=== PATIENT | female | born 1985 | race Caucasian/White ===

== ENCOUNTER 2016-06-03 20:32 | Inpatient (IN) | payer OTHER ==
[~2016-06-03] VITALS: Ht 170.2 cm; Wt 91.2 kg
[~2016-06-03 20:32] MED LIST: ASPIRIN81 M2 PO; LO-DOSE ASPIRIN81 M1 PO; LOVENOX100 MG/1 M SC; LOVENOX40 MG/0.4 SC
[2016-06-03 20:46] VITALS: BP 124/76
[2016-06-03] MEDS ORDERED: LOVENOX40 MG/0.4 SC (21:08)
[2016-06-03] MEDS ORDERED: LO-DOSE ASPIRIN81 M2 PO (21:09)
[2016-06-03] MEDS ORDERED: L-METHYL-B6-B11 EACH PO (21:09)
[2016-06-03 21:18] LABS: EOSINOPHIL (%) 0.6 % (0-5); EOSINOPHIL COUNT 0.1 K/uL (0-0.3); HEMATOCRIT 32.6 % (36.0-46.0); IMMATURE GRANULOCYTE (%) 0.4 % (0.0-0.7); LYMPHOCYTE COUNT 1.5 K/uL (1.0-2.8); MCH 26.7 PG (29.0-34.0); MCHC 31.6 G/DL (30.0-36.0); MCV 84.5 FL (83-99); MEAN PLAT.VOLUME 11.6 uM^3 (9.5-12.4); MONOCYTE (%) 4.1 % (3-12); MONOCYTE COUNT 0.4 K/uL (0-0.8); NEUTROPHIL (%) 79.6 % (45-76); PLATELET COUNT 241 K/uL (156-360); RBC DIS.WIDTH-CV 15.3 % (11.8-14.6); RBC DIS.WIDTH-SD 46.8 % (39-53); RED BLOOD COUNT 3.86 M/uL (3.80-5.20)
[2016-06-03 22:24] VITALS: BP 133/67
[2016-06-03 22:45] VITALS: BP 120/80
[2016-06-03 23:00] VITALS: BP 116/70
[2016-06-03 23:15] VITALS: BP 129/73
[2016-06-04 00:35] VITALS: BP 124/72
[2016-06-04 01:29] VITALS: BP 113/68
[2016-06-04 07:19] VITALS: BP 122/68
[2016-06-04 12:34] LABS: EOSINOPHIL (%) 0.7 % (0-5); EOSINOPHIL COUNT 0.1 K/uL (0-0.3); HEMATOCRIT 29.2 % (36.0-46.0); IMMATURE GRANULOCYTE (%) 0.3 % (0.0-0.7); LYMPHOCYTE COUNT 1.9 K/uL (1.0-2.8); MCHC 32.9 G/DL (30.0-36.0); MCV 85.1 FL (83-99); MONOCYTE (%) 10.6 % (3-12); MONOCYTE COUNT 0.9 K/uL (0-0.8); NEUTROPHIL (%) 66.8 % (45-76); NEUTROPHIL COUNT 5.8 K/uL (1.8-6.4); PLATELET COUNT 236 K/uL (156-360); RBC DIS.WIDTH-CV 15.5 % (11.8-14.6); RBC DIS.WIDTH-SD 47.7 % (39-53); RED BLOOD COUNT 3.43 M/uL (3.80-5.20); WHITE BLOOD COUNT 8.7 K/uL (4.1-10.2)
[2016-06-04 15:27] VITALS: BP 116/76
[2016-06-04 22:15] VITALS: BP 120/80
[2016-06-05 07:32] VITALS: BP 118/80
[2016-06-05] MEDS ORDERED: DOCUSATE SODIU100 MG PO (10:27)
[2016-06-05] MEDS ORDERED: IBUPROFEN800 MG PO (10:27)
[2016-06-05] MEDS ORDERED: PROCTOFOAM-HC10 GM PR (10:28)
== END 2016-06-05 13:45 | disposition home or self-care (01) | DRG 775 ==
LOC: LDRP-OP 20:32 → 2WEST 20:33 → LDRP-OP 07-14 11:04
PROVIDERS: Advanced Practice Midwife; Obstetrics & Gynecology
DX: O62.3 Precipitate labor (principal); O70.0 First degree perineal laceration during delivery; O99.284 Endocrine, nutritional and metabolic diseases complicating childbirth; E72.12 Methylenetetrahydrofolate reductase deficiency; O99.02 Anemia complicating childbirth; D62 Acute posthemorrhagic anemia; Z37.0 Single live birth; Z3A.38 38 weeks gestation of pregnancy
CPT/HCPCS: 85025; J7120